=== PATIENT | male | born 1945 | race Caucasian/White ===

== ENCOUNTER 2020-11-09 13:52 | Inpatient (IN) | payer OTHER ==
[~2020-11-09] VITALS: Ht 170.2 cm; Wt 85.8 kg
[2020-11-09 06:15] VITALS: BP 156/88
[2020-11-09] MEDS ORDERED: ASCORBIC ACID 500 MG TAB PO ONE (14:00)
[2020-11-09] MEDS ORDERED: CHOLECALCIFEROL (VITD3) 2,000 UNIT CAP/TAB PO ONE (14:00)
[2020-11-09] MEDS ORDERED: ZINC SULFATE 220mg CAP or TAB PO ONE (14:00)
[2020-11-09] MEDS ORDERED: AZITHROMYCIN 500MG/ 250ML 250 ML IV ONE (14:00)
[2020-11-09] MEDS ORDERED: methylPREDNISolone SOD SUCC 125 MG/2 ML VL IV ONE (14:00)
[2020-11-09 14:33] LABS: Basophils # (auto) 0 10 ^3/uL (0-0.2); Basophils % (auto) 0.3 % (0.0-2.0); Eosinophils # (auto) 0.1 10 ^3/uL (0-0.8); Eosinophils % (auto) 1.5 % (0.0-7.0); Hematocrit 37.8 % (41.0-53.0); Hemoglobin 12.9 g/dL (13.5-17.5); Lymphocytes % (auto) 15.1 % (10.0-50.0); Mean Corpuscular Hemoglobin 30.8 pg (28.0-32.0); Mean Corpuscular Hgb Conc. 34.1 g/dL (32.0-36.0); Mean Corpuscular Volume 90.4 fL (80.0-100.0); Monocytes # (auto) 0.5 10 ^3/uL (0-1.3); Monocytes % (auto) 7.6 % (0.0-12.0); Neutrophils # (auto) 4.9 10 ^3/uL (1.6-8.6); Neutrophils % (auto) 75.5 % (37.0-80.0); Nucleated Red Blood Cells % 0.1 %; Platelet Count (auto) 297 10^3/uL (140-450); Red Blood Cells 4.19 10^6/uL (4.5-5.90); Red Cell Distribution Width 13.1 % (11.8-14.3); White Blood Cell 6.5 10^3/uL (4.4-10.8)
[2020-11-09 14:55] LABS: Albumin 2.8 g/dL (3.4-5.0); Anion Gap 7 (5-15); BUN/Creatinine Ratio 18.5; Blood Urea Nitrogen 17 mg/dL (7-18); Calcium 8.9 mg/dL (8.5-10.1); Carbon Dioxide 25 mmol/L (21-32); Chloride 103 mmol/L (98-107); GFR African American 103 mL/min; GFR Non-African American 85 mL/min; Glucose 135 mg/dL (74-106); Magnesium 2.2 mg/dL (1.6-2.6); Sodium 135 mmol/L (136-145)
[2020-11-09 15:00] LABS: Alanine Aminotransferase 128 U/L (16-61); Alkaline Phosphatase 216 U/L (45-117); Aspartate Aminotransferase 94 U/L (15-37); Bilirubin, Total 0.6 mg/dL (0.2-1.0); Total Protein 7.7 g/dL (6.4-8.2)
[2020-11-09] MEDS ORDERED: REMDESIVIR PER PHARMACY 0 ML IV SCH ×2 (15:30→17:00)
[2020-11-09] MEDS ORDERED: MORPHINE SULF INJ 2 MG/ML SYRINGE 1ML IV PRN ×2 (15:45→17:00)
[2020-11-09] MEDS ORDERED: NITROGLYCERIN 0.4 MG SL TAB SL PRN (15:45)
[2020-11-09] MEDS ORDERED: ZOLPIDEM TARTRATE 5 MG TAB PO PRN (17:00)
[2020-11-09] MEDS ORDERED: NALBUPHINE HCL 10 MG/1ml INJECTION IV PRN (17:00)
[2020-11-09] MEDS ORDERED: diphenhdrAMINE HCL 50 MG/1 ML VL IV PRN (17:00)
[2020-11-09] MEDS ORDERED: DEXTROSE (50%) 50ML SYRG IV PRN (17:00)
[2020-11-09] MEDS ORDERED: ONDANSETRON HCL 4 MG/2 ML VIAL IV PRN (17:00)
[2020-11-09] MEDS ORDERED: LACTULOSE 20Gm/30ML SOLN PO PRN (17:00)
[2020-11-09] MEDS: SODIUM CHLORIDE 0.9% 1,000 ML IV SCH (17:43)
[2020-11-09] MEDS: ACCU-CHEK COMFORT CURVE STRIP VI SCH ×2 (17:44→22:00)
[2020-11-09] MEDS: InsuLIN REG 1unit/0.01ml Soln (100units/ml) SC SCH ×2 (17:48→22:33)
[2020-11-09] MEDS ORDERED: REMDESIVIR 200 MG in NS 210ml LOADING DOSE ADULT IV ONE (18:00)
[2020-11-09 18:15] VITALS: BP 156/88
[2020-11-09 18:41] LABS: Urine Bacteria NONE SEEN /hpf (None Seen); Urine Blood Negative /uL (Negative); Urine Specific Gravity 1.005 (1.001-1.035); Urine WBC 1 /hpf (0 - 3)
[2020-11-09 19:55] VITALS: BP 158/81
[2020-11-09] MEDS: BUDESONIDE (INHALATION) 180 MCG IH IN SCH (21:57)
[2020-11-09] MEDS: ALBUTEROL SULF HFA 90MCG INH 200DOSE IN PRN (21:57)
[2020-11-09 22:00] VITALS: BP 158/81
[2020-11-09] MEDS: FLORASTOR (S. BOULARDII) 250 MG CAP PO SCH (22:31)
[2020-11-09] MEDS: FAMOTIDINE (10MG/ML) 2ML VL IV SCH (22:31)
[2020-11-09] MEDS: ENOXAPARIN SOD 40 MG/0.4 ML SYRINGE SC SCH (22:32)
[2020-11-09] MEDS ORDERED: LOSA-69 PO (23:44)
[2020-11-09] MEDS ORDERED: COEN100C15 PO (23:44)
[2020-11-09] MEDS ORDERED: MULT-1018 PO (23:44)
[2020-11-09] MEDS ORDERED: SIMV10TA84 PO (23:44)
[2020-11-09] MEDS ORDERED: METF-370 PO (23:44)
[2020-11-10 05:00] VITALS: BP 140/77
[2020-11-10] MEDS: SODIUM CHLORIDE 0.9% 1,000 ML IV SCH (06:20)
[2020-11-10] MEDS: ACCU-CHEK COMFORT CURVE STRIP VI SCH ×4 (06:23→21:40)
[2020-11-10] MEDS: InsuLIN REG 1unit/0.01ml Soln (100units/ml) SC SCH ×4 (06:25→21:43)
[2020-11-10] MEDS ORDERED: IVERMECTIN 3 MG TAB PO ONE (07:00)
[2020-11-10 07:21] LABS: Basophils # (auto) 0 10 ^3/uL (0-0.2); Eosinophils # (auto) 0 10 ^3/uL (0-0.8); Hemoglobin 12.5 g/dL (13.5-17.5); Lymphocytes # (auto) 0.8 10 ^3/uL (0.4-5.4); Lymphocytes % (auto) 13.3 % (10.0-50.0); Mean Corpuscular Hgb Conc. 34.7 g/dL (32.0-36.0); Mean Corpuscular Volume 89.4 fL (80.0-100.0); Monocytes # (auto) 0.3 10 ^3/uL (0-1.3); Monocytes % (auto) 5.5 % (0.0-12.0); Neutrophils % (auto) 81.2 % (37.0-80.0); Platelet Count (auto) 284 10^3/uL (140-450); Red Blood Cells 4.03 10^6/uL (4.5-5.90); White Blood Cell 6.1 10^3/uL (4.4-10.8)
[2020-11-10 07:43] LABS: Potassium 4.2 mmol/L (3.5-5.1)
[2020-11-10 07:49] LABS: Albumin 2.7 g/dL (3.4-5.0); BUN/Creatinine Ratio 17.5; Calcium 8.6 mg/dL (8.5-10.1)
[2020-11-10 07:56] LABS: Bilirubin, Total 0.4 mg/dL (0.2-1.0); Total Protein 7.1 g/dL (6.4-8.2)
[2020-11-10 08:55] VITALS: BP 139/80
[2020-11-10] MEDS: DexAMETHasone SOD PHOS 10MG/1ML VIAL INJ IV SCH (09:11)
[2020-11-10] MEDS: levoFLOXacin 500MG 100 ML IV SCH (09:11)
[2020-11-10] MEDS: CHOLECALCIFEROL (VITD3) 2,000 UNIT CAP/TAB PO SCH (09:12)
[2020-11-10] MEDS: ZINC SULFATE 220mg CAP or TAB PO SCH (09:12)
[2020-11-10] MEDS: ASCORBIC ACID 1,000 MG TAB PO SCH (09:12)
[2020-11-10] MEDS: ENOXAPARIN SOD 40 MG/0.4 ML SYRINGE SC SCH ×2 (09:12→21:26)
[2020-11-10] MEDS: FAMOTIDINE (10MG/ML) 2ML VL IV SCH ×2 (09:12→21:26)
[2020-11-10] MEDS: FLORASTOR (S. BOULARDII) 250 MG CAP PO SCH ×2 (09:12→21:26)
[2020-11-10] MEDS: ALBUTEROL SULF HFA 90MCG INH 200DOSE IN PRN ×3 (12:15→18:57)
[2020-11-10] MEDS: BUDESONIDE (INHALATION) 180 MCG IH IN SCH ×2 (12:15→18:57)
[2020-11-10 13:00] VITALS: BP 134/79
[2020-11-10] MEDS: REMDESIVIR 100mg 100 MG in SODIUM CHL 0.9% 230 ML IV SCH (15:02)
[2020-11-10 17:00] VITALS: BP 128/96
[2020-11-10 22:28] VITALS: BP 139/77
[2020-11-11 05:16] VITALS: BP 130/81
[2020-11-11] MEDS: ACCU-CHEK COMFORT CURVE STRIP VI SCH ×4 (06:16→21:44)
[2020-11-11] MEDS: InsuLIN REG 1unit/0.01ml Soln (100units/ml) SC SCH ×4 (06:17→21:51)
[2020-11-11] MEDS: BUDESONIDE (INHALATION) 180 MCG IH IN SCH ×2 (06:55→21:55)
[2020-11-11] MEDS: ALBUTEROL SULF HFA 90MCG INH 200DOSE IN PRN ×2 (06:55→21:55)
[2020-11-11 07:15] LABS: Albumin 2.4 g/dL (3.4-5.0); Calcium 8.6 mg/dL (8.5-10.1); Potassium 4.2 mmol/L (3.5-5.1)
[2020-11-11 07:18] LABS: BUN/Creatinine Ratio 26.1
[2020-11-11 07:21] LABS: Bilirubin, Total 0.3 mg/dL (0.2-1.0); Total Protein 6.3 g/dL (6.4-8.2)
[2020-11-11] MEDS: ASCORBIC ACID 1,000 MG TAB PO SCH (08:54)
[2020-11-11] MEDS: levoFLOXacin 500MG 100 ML IV SCH (08:54)
[2020-11-11] MEDS: ZINC SULFATE 220mg CAP or TAB PO SCH (08:54)
[2020-11-11] MEDS: FAMOTIDINE (10MG/ML) 2ML VL IV SCH ×2 (08:54→21:52)
[2020-11-11] MEDS: FLORASTOR (S. BOULARDII) 250 MG CAP PO SCH ×2 (08:54→21:52)
[2020-11-11] MEDS: DexAMETHasone SOD PHOS 10MG/1ML VIAL INJ IV SCH (08:54)
[2020-11-11] MEDS: ENOXAPARIN SOD 40 MG/0.4 ML SYRINGE SC SCH ×2 (08:55→21:52)
[2020-11-11] MEDS: CHOLECALCIFEROL (VITD3) 2,000 UNIT CAP/TAB PO SCH (08:55)
[2020-11-11 09:00] VITALS: BP 132/69
[2020-11-11 13:00] VITALS: BP 138/80
[2020-11-11] MEDS: REMDESIVIR 100mg 100 MG in SODIUM CHL 0.9% 230 ML IV SCH (15:06)
[2020-11-11 17:00] VITALS: BP 138/48
[2020-11-11 21:37] VITALS: BP 149/74
[2020-11-12] VITALS (9 sets, daily range): BP systolic 120–159; BP diastolic 69–86
[2020-11-12] MEDS: InsuLIN REG 1unit/0.01ml Soln (100units/ml) SC SCH ×4 (06:28→21:39)
[2020-11-12] MEDS: ACCU-CHEK COMFORT CURVE STRIP VI SCH ×4 (06:28→21:35)
[2020-11-12] MEDS: BUDESONIDE (INHALATION) 180 MCG IH IN SCH ×2 (07:00→21:13)
[2020-11-12 07:23] LABS: Potassium 4.9 mmol/L (3.5-5.1)
[2020-11-12 07:30] LABS: Albumin 2.6 g/dL (3.4-5.0); BUN/Creatinine Ratio 25.2; Bilirubin, Total 0.3 mg/dL (0.2-1.0); Calcium 8.6 mg/dL (8.5-10.1); Total Protein 6.6 g/dL (6.4-8.2)
[2020-11-12] MEDS: levoFLOXacin 500MG 100 ML IV SCH (10:32)
[2020-11-12] MEDS: ENOXAPARIN SOD 40 MG/0.4 ML SYRINGE SC SCH ×2 (10:32→21:26)
[2020-11-12] MEDS: DexAMETHasone SOD PHOS 10MG/1ML VIAL INJ IV SCH (10:32)
[2020-11-12] MEDS: FAMOTIDINE (10MG/ML) 2ML VL IV SCH ×2 (10:32→21:25)
[2020-11-12] MEDS: ASCORBIC ACID 1,000 MG TAB PO SCH (10:33)
[2020-11-12] MEDS: ZINC SULFATE 220mg CAP or TAB PO SCH (10:33)
[2020-11-12] MEDS: FLORASTOR (S. BOULARDII) 250 MG CAP PO SCH ×2 (10:33→21:26)
[2020-11-12] MEDS: CHOLECALCIFEROL (VITD3) 2,000 UNIT CAP/TAB PO SCH (10:34)
[2020-11-12] MEDS: REMDESIVIR 100mg 100 MG in SODIUM CHL 0.9% 230 ML IV SCH (16:15)
[2020-11-12] MEDS: ALBUTEROL SULF HFA 90MCG INH 200DOSE IN PRN (21:14)
[2020-11-13 00:27] VITALS: BP 120/82
[2020-11-13 05:00] VITALS: BP 148/89
[2020-11-13] MEDS: InsuLIN REG 1unit/0.01ml Soln (100units/ml) SC SCH ×2 (05:53→11:48)
[2020-11-13] MEDS: ACCU-CHEK COMFORT CURVE STRIP VI SCH ×2 (05:53→11:43)
[2020-11-13] MEDS: ALBUTEROL SULF HFA 90MCG INH 200DOSE IN PRN ×2 (06:45→08:54)
[2020-11-13] MEDS: BUDESONIDE (INHALATION) 180 MCG IH IN SCH ×2 (06:45→08:56)
[2020-11-13 06:54] LABS: Potassium 4.4 mmol/L (3.5-5.1)
[2020-11-13 07:00] LABS: Albumin 2.6 g/dL (3.4-5.0); BUN/Creatinine Ratio 26.9; Bilirubin, Total 0.3 mg/dL (0.2-1.0); Calcium 8.5 mg/dL (8.5-10.1); Total Protein 6.5 g/dL (6.4-8.2)
[2020-11-13 08:30] VITALS: BP 133/75
[2020-11-13] MEDS: DexAMETHasone SOD PHOS 10MG/1ML VIAL INJ IV SCH (10:27)
[2020-11-13] MEDS: FLORASTOR (S. BOULARDII) 250 MG CAP PO SCH (10:28)
[2020-11-13] MEDS: levoFLOXacin 500MG 100 ML IV SCH (10:28)
[2020-11-13] MEDS: ZINC SULFATE 220mg CAP or TAB PO SCH (10:28)
[2020-11-13] MEDS: FAMOTIDINE (10MG/ML) 2ML VL IV SCH (10:28)
[2020-11-13] MEDS: ASCORBIC ACID 1,000 MG TAB PO SCH (10:28)
[2020-11-13] MEDS: CHOLECALCIFEROL (VITD3) 2,000 UNIT CAP/TAB PO SCH (10:29)
[2020-11-13] MEDS: ENOXAPARIN SOD 40 MG/0.4 ML SYRINGE SC SCH (10:29)
[2020-11-13 12:30] VITALS: BP 149/89
[2020-11-13] MEDS: REMDESIVIR 100mg 100 MG in SODIUM CHL 0.9% 230 ML IV SCH (13:30)
[2020-11-13 13:37] VITALS: BP 133/75
== END 2020-11-13 16:08 | disposition home or self-care (01) | DRG 177 ==
LOC: ER 13:52 → TELE 13:53 → TELE-WESTW 19:51
PROVIDERS: ADMIT Internal Medicine; ATTEND Internal Medicine
PROC: XW033E5 Introduction of Remdesivir Anti-infective into Peripheral Vein, Percutaneous Approach, New Technology Group 5 (ICD-10-PCS; 2020-11-09)
PROC: XW13325 Transfusion of Convalescent Plasma (Nonautologous) into Peripheral Vein, Percutaneous Approach, New Technology Group 5 (ICD-10-PCS; principal; 2020-11-12)
DX: U07.1 COVID-19 (principal); J12.82 Pneumonia due to coronavirus disease 2019; E78.5 Hyperlipidemia, unspecified; I10 Essential (primary) hypertension; E11.9 Type 2 diabetes mellitus without complications; E66.9 Obesity, unspecified; Z88.0 Allergy status to penicillin; Z83.3 Family history of diabetes mellitus; Z79.899 Other long term (current) drug therapy; Z68.29 Body mass index [BMI] 29.0-29.9, adult
CPT/HCPCS: 36415; 71045; 80053; 81001; 82306; 82728; 82962; 83036; 83735; 83880; 84484; 85025; 85379; 86141; 86850; 86900; 86901; 87426; 93005; 94640; 96365; 96366; 96375; G0378; J1100; J1815; J1956; J3490